=== PATIENT | female | born 2000 | race Caucasian/White ===

== ENCOUNTER 2022-06-01 10:53 | Emergency (ER) | payer BC ==
[~2022-06-01] VITALS: Ht 167.6 cm; Wt 61.4 kg
[2022-06-01 11:06] VITALS: TEMP 98.4
[2022-06-01 11:23] LABS: COLLECTION METHOD CLEAN CATCH
[2022-06-01 11:59] LABS: MUCOUS Present (NOT PRESENT); SQUAMOUS EPITHELIAL 0-2 /hpf (0-10); URINE BACTERIA Rare /hpf (NONE SEEN); URINE RBC 0-2 /hpf (0-2)
[2022-06-01 12:04] LABS: URINE APPEARANCE Clear (CLEAR/HAZY); URINE BLOOD Negative (NEGATIVE); URINE COLOR Yellow (YELLOW); URINE GLUCOSE Negative (NEGATIVE); URINE KETONE Negative (NEGATIVE); URINE NITRATE Negative (NEGATIVE); URINE PROTEIN(semi-quant) Negative (NEGATIVE); URINE UROBILINOGEN 0.2 E.U/dL (0.2-1.0)
[2022-06-01] MEDS ORDERED: FLEXERIL 1010 MG/TAB PO (12:06)
[2022-06-01 12:30] VITALS: BP 127/73; PULSE 57
== END 2022-06-01 12:35 | disposition home or self-care (01) ==
LOC: COL.ER 10:53
PROVIDERS: Physician Assistant
DX: S29.012A Strain of muscle and tendon of back wall of thorax, initial encounter (principal); X50.0XXA Overexertion from strenuous movement or load, initial encounter; Y93.02 Activity, running
CPT/HCPCS: J1885